=== PATIENT | male | born 1985 | race Native Hawaiian/Other Pacific Islander ===

== ENCOUNTER 2018-05-02 03:52 | Outpatient (CLI) | payer OTHER ==
[~2018-05-02 03:52] MED LIST: LISI20TA11 PO
== END 2018-05-02 03:58 | disposition short-term general hospital (02) ==
LOC: AMB 03:52
DX: R41.82 Altered mental status, unspecified (principal)
CPT/HCPCS: A0425; A0429

== ENCOUNTER 2018-05-02 04:01 | Inpatient (IN) | payer OTHER ==
[~2018-05-02] VITALS: Ht 182.9 cm; Wt 91.2 kg
[2018-05-02] VITALS (30 sets, daily range): BP systolic 102–136; BP diastolic 57–84; TEMP 97–98.2; Ht 182.9 cm; Wt 91.2 kg
[2018-05-02 04:28] LABS: PLATELET COUNT 276 K/uL (142-355)
[2018-05-02 04:45] LABS: POTASSIUM 4.3 mmol/L (3.6-5.2); SODIUM 141 mmol/L (136-145)
[2018-05-03] VITALS (25 sets, daily range): BP systolic 110–138; BP diastolic 62–94; TEMP 97.2–98.1
[2018-05-04] VITALS (11 sets, daily range): BP systolic 119–140; BP diastolic 57–90; TEMP 97.8–98.8
[2018-05-04 08:36] LABS: PLATELET COUNT 242 K/uL (142-355)
[2018-05-04 09:31] LABS: POTASSIUM 3.7 mmol/L (3.6-5.2)
[2018-05-05 03:54] VITALS: BP 126/78; TEMP 98.2
[2018-05-05 07:53] LABS: PLATELET COUNT 212 K/uL (142-355)
[2018-05-05 08:02] LABS: POTASSIUM 3.2 mmol/L (3.6-5.2)
[2018-05-05 08:06] VITALS: BP 141/80; TEMP 98
== END 2018-05-05 10:10 | disposition home or self-care (01) | DRG 918 ==
LOC: ED 04:01 → ICU 06:45 → MED/SURG 05-04 14:45
PROVIDERS: Emergency Medicine; ADMIT Family Medicine
DX: T43.621A Poisoning by amphetamines, accidental (unintentional), initial encounter (principal); F15.129 Other stimulant abuse with intoxication, unspecified; I10 Essential (primary) hypertension; D72.828 Other elevated white blood cell count
CPT/HCPCS: 51702; 80053; 80307; 81000; 84484; 85027; 93005; 94760; 96360; 96372; 96375; 99285; J1200; J1630; J2060; J2310; J3411; J3486; J3490

== ENCOUNTER 2018-06-04 20:36 | Emergency (ER) | payer OTHER ==
[~2018-06-04] VITALS: Ht 172.7 cm; Wt 91.2 kg
[2018-06-04 22:17] LABS: PLATELET COUNT 288 K/uL (142-355)
[2018-06-04 22:31] LABS: POTASSIUM 3.9 mmol/L (3.6-5.2)
[2018-06-04 23:20] VITALS: BP 130/93; TEMP 98
== END 2018-06-04 23:25 | disposition home or self-care (01) ==
LOC: ED 20:36
PROVIDERS: Family Medicine
DX: N34.2 Other urethritis (principal)
CPT/HCPCS: 36415; 80053; 81000; 85027; 99283